=== PATIENT | female | born 2000 | race Caucasian/White ===

== ENCOUNTER 2020-02-17 08:37 | Outpatient (REF) | payer OTHER, SELFPAY | END 2020-02-17 08:38 | disposition home or self-care (01) | LOC: HO.LAB 08:37 | PROVIDERS: Visit Provider Internal Medicine | DX: Z20.828 Contact with and (suspected) exposure to other viral communicable diseases (principal) | CPT/HCPCS: 87635 ==

== ENCOUNTER 2020-03-02 17:00 | Emergency (ER) | payer OTHER, SELFPAY ==
--- NOTE | 2020-03-02 17:13 | CT_ITS ---
EXAMINATION: CT HEAD WITHOUT CONTRAST CLINICAL INFORMATION: Severe headaches. COMPARISON: None. TECHNIQUE: Contiguous helical images of the brain were obtained without IV contrast. Multiplanar reconstructions were performed. DLP: 484 mGy-cm. FINDINGS: There are no pathologic extra-axial fluid collections. The lateral, third, fourth ventricles are nondilated and concordant with the appearance of the sulci. There is no evidence for acute intraparenchymal hemorrhage or infarct. There is neither mass nor mass effect. There is no shift of midline structures. The paranasal sinuses and mastoid air cells are clear. There are no osseous lesions. CT/CT head/brain wo con IMPRESSION: No evidence for acute intracranial injury. Automated exposure control (Care Dose) Adjustment of the mA and/or kv according to patient size (this includes techniques or standardized protocols for targeted exams where dose is matched to indication / reason for exam; i.e. extremities or head).
[2020-03-02 17:14] VITALS: BP 125/80; PULSE 100; RESP 16; TEMP 36.8; O2SAT 99; BMI 17.9
--- NOTE | 2020-03-02 17:15 | ED.HA ---
HPI - Headache General Chief Complaint: Headache Stated Complaint: headache Time Seen by Provider: 03/02/20 17:07 Source: patient Mode of arrival: ambulatory Limitations: no limitations History of Present Illness HPI Narrative: Patient comes to the emergency room complaining of severe intermittent headaches for about 1 month. Patient was seen by her primary care physician, patient states that an MRI has been ordered but is pending for next week. Patient states the headache today is very severe despite taking Excedrin and Tylenol. Patient denies any neurological symptoms, no visual changes. Related Data Previous Rx's Medication Instructions Recorded ketorolac 10 mg PO Q6H PRN 5 Days #10 tab 03/02/20 ketorolac 10 mg PO TID PRN 5 Days tab 03/02/20 metoclopramide HCl [Reglan] 5 mg PO Q6H PRN #10 tab 03/02/20 Allergies Allergy/AdvReac Type Severity Reaction Status Date / Time No Known Allergies Allergy Unverified 01/11/20 16:56 Review of Systems Review of Systems: Constitutional : No Weight loss, No Fever, No Chills, No Night Sweats, No Fatigue, No Malaise ENT/Mouth : No Hearing loss, No Ear Pain, No Nasal Congestion, No Sinus Pain, No Hoarseness, No sore throat, No Rhinorrhea, No Swallowing Difficulty Eyes: No Eye Pain, No Swelling, No Redness, No Foreign Body, No Discharge, No Vision Changes Cardiovascular : No Chest Pain, No SOB, No Dyspnea on Exertion, No Orthopnea, No Edema, No Palpitations Respiratory : No Cough, No Sputum, No Wheezing, No Smoke Exposure, No Dyspnea Gastrointestinal : No Nausea, No Vomiting, No Diarrhea, No Constipation, No abdominal Pain, No Hematochezia, No Melena Genitourinary : no irregular bleeding, No Dysuria, No Urinary Frequency, No Hematuria, No Urinary Incontinence, No Urgency, No Flank Pain, No Urinary Flow Changes, No Hesitancy Musculoskeletal : No joint pain, No Myalgias, No Joint Swelling Skin : No Skin Lesions, No rash Neuro : No Weakness, No Numbness, No Paresthesias, No Loss of Consciousness, No Dizziness, complaining of intense headache worse on the left side intermittently, nonresponsive to [id number] medication Psych : No Anxiety/Panic, No Depression, No SI/HI/AH/VH, No Social Issues, Heme/Lymph: No Bruising, No Bleeding,No Lymphadenopathy Endocrine : No Polyuria, No Polydipsia, No Temperature Intolerance [facility] Past Medical History Medical History No known health problems Family History Family History (Updated 03/02/20 @ 17:17 by Hien Chaparro MD) Other Migraine Social History Social History Alcohol intake: never Smoking Status: Never smoker Smoked in Last 30 Days: No Use of substances other than those prescribed or required for medical reasons: No Advance Directives: No Advance Directives Information Provided: No Physical Exam Vital Signs: Vital Signs: Last Vital Signs Temp 98.2 F 03/02/20 17:20 Pulse 100 03/02/20 17:20 Resp 16 03/02/20 17:14 BP 125/80 03/02/20 17:20 Pulse Ox 99 03/02/20 17:20 Body Mass Index 17.9 Appearance: Alert. Oriented X3. No acute distress. Eyes: Pupils equal, round and reactive to light. Patient does not seem to have photophobia ENT: Pharynx normal. Neck: Normal inspection. Neck supple. No lymph nodes noted. No crepitus CVS: Normal heart rate and rhythm. Pulses normal. Normal S1 and S2 Respiratory: No respiratory distress. Breath sounds normal. No Wheezing. No rales Abdomen: Soft and nontender. No rigidity. No distention. good BS x4 Skin: Skin warm and dry. Normal skin color. Normal skin turgor. Extremities: No lower extremity edema. No lower extremity edema. No Lacerations. No Rash Neuro: Oriented X 3. No motor deficit. No sensory deficit. Moving all extermities. No slurred speech. Course Course Course Narrative: I discussed the head CT with the patient, no acute findings. Patient states she still has a headache, patient looks well, she is in no acute distress, lights do not bother her, patient has a television on in her room, she is watching TV and playing on her phone. On physical exam prior to discharge, patient remains neurologically intact Patient will follow-up with her primary care physician, if needed she may need a Neurology referral. Discharge Plan Discharge Clinical Impression: Headache Qualifiers: Headache type: unspecified Headache chronicity pattern: chronic headache Intractability: not intractable Qualified Code(s): R51.9 - Headache, unspecified Patient Disposition: Home, Self-Care Instructions: Acute Headache (ED) Additional Instructions: Please follow-up with your primary care physician tomorrow. If you have any worsening or new symptoms, please return to the emergency room or call 911 Prescriptions: New ketorolac 10 mg tablet 10 mg PO TID PRN (Reason: pain) 5 Days RF: 0 metoclopramide HCl [Reglan] 5 mg tablet 5 mg PO Q6H PRN (Reason: nausea and vomiting) Qty: 10 RF: 0 ketorolac 10 mg tablet 10 mg PO Q6H PRN (Reason: headache) 5 Days Qty: 10 RF: 0
[2020-03-02 17:20] VITALS: BP 125/80; PULSE 100; TEMP 36.8; O2SAT 99
[2020-03-02] MEDS: 0.9 % Sodium Chloride 1,000 ML 999 ML IVCONT (17:47)
[2020-03-02] MEDS: Metoclopramide HCl 10 MG/2 ML VIAL IVPUSH (17:51)
[2020-03-02] MEDS: Ketorolac Tromethamine 30 MG/ML VIAL IVPUSH (17:51)
[2020-03-02] MEDS: diphenhydrAMINE HCL 50 MG/ML VIAL IVPUSH (17:51)
--- NOTE | 2020-03-02 17:58 | PC.NURSE ---
IV established, pt has been medicated as ordered and is resting quietly
[2020-03-02 18:43] VITALS: BP 122/82; PULSE 93; RESP 18; TEMP 36.8; O2SAT 99
== END 2020-03-02 19:41 | disposition home or self-care (01) ==
PROVIDERS: Emergency Provider Emergency Medicine
DX: R51.9 Headache, unspecified (principal); Z79.899 Other long term (current) drug therapy
CPT/HCPCS: 70450; 96361; 96374; 96375; 99284; J1200; J1885; J2765

== ENCOUNTER 2020-07-19 15:25 | Outpatient (REF) | payer OTHER, SELFPAY | END 2020-07-19 15:26 | disposition home or self-care (01) | LOC: HO.LAB 15:25 | PROVIDERS: Visit Provider Internal Medicine | DX: Z20.822 Contact with and (suspected) exposure to COVID-19 (principal) | CPT/HCPCS: 36415; C9803; U0003; U0005 ==

== ENCOUNTER 2020-12-29 14:25 | Emergency (ER) | payer OTHER, SELFPAY ==
--- NOTE | ~2020-12-29 | CT_ITS ---
EXAMINATION: CT ABDOMEN AND PELVIS WITH CONTRAST CLINICAL INFORMATION: right CVA tender and diffuse abdominal pain COMPARISON: None. TECHNIQUE: Multidetector volumetric imaging was performed from the superior aspect of the liver through the pubic symphysis following administration of 85 mL Omnipaque 300 intravenous contrast. Sagittal and coronal reformatted images were obtained on the technologist workstation.. This CT examination was performed using dose optimization techniques as appropriate, variously including the following: *Automated exposure control *Adjustment of mA and/or kV according to patient size (this includes techniques or standardized protocols for targeted exams where dose is matched to indication/reason for exam; i.e. extremities or head) *Use of iterative reconstruction technique DLP: 233 mGy-cm FINDINGS: LUNG BASES: The visualized lung bases are unremarkable. PERITONEAL SPACE: Small amount of free fluid tracking along the paracolic gutters and into the pelvis. LIVER, GALLBLADDER, AND BILIARY TREE: The liver is normal in size, shape, and attenuation. There is mild periportal edema seen which is a nonspecific finding. No focal hepatic lesion or biliary ductal dilatation is present. Gallbladder is contracted with a small amount of nonspecific pericholecystic fluid. PANCREAS: Unremarkable. SPLEEN: Unremarkable. ADRENAL GLANDS: Unremarkable. KIDNEYS AND URETERS: The kidneys are normal in size, shape, and attenuation. No hydronephrosis, hydroureter, or calculi seen. No perinephric stranding. BLADDER: Unremarkable. GASTROINTESTINAL TRACT: The small and large bowel are unremarkable. The appendix is is not able to be from adjacent bowel loops but I do not appreciate any focal inflammatory change in the right lower quadrant. Small amount of free fluid is seen in the dependent pelvis. ABDOMINAL WALL: No significant hernia is appreciated. LYMPHOVASCULAR STRUCTURES: No lymphadenopathy. The aorta is unremarkable. PELVIC VISCERA: Physiologic changes are seen bilaterally in the adnexa. Small amount of free fluid in the dependent pelvis. OSSEOUS STRUCTURES: Unremarkable. CT/CT abdomen pelvis w con IMPRESSION: Small amount of free fluid is seen. There is mild nonspecific pericholecystic fluid as well as some mild fluid tracking along the portal tracts of uncertain etiology in the setting of the small free fluid. Overall the appearance is nonspecific
[2020-12-29 14:50] VITALS: BP 122/72; PULSE 87; RESP 18; TEMP 36.4; O2SAT 97; BMI 18.8
[2020-12-29 15:11] LABS: Glucose Urine UA NEG (NEG); Leukocyte Esterase Urine NEG (NEG); Nitrite Urine NEG (NEG); Specific Gravity - Urine 1.015 (1.005-1.025); Urine Blood NEG (NEG); Urine Ketones NEG (NEG); Urine Protein NEG (NEG-TRACE)
[2020-12-29 15:13] LABS: Appearance Urine CLEAR; Color Urine YELLOW
[2020-12-29 15:14] LABS: UPreg QC Valid YES; Urine Pregnancy NEGATIVE (NEGATIVE)
--- NOTE | 2020-12-29 15:21 | ED.ABDPAIN ---
HPI - Abdominal Pain General Chief Complaint: Abdominal Pain Stated Complaint: KIDNEY AND ABD PAIN Time Seen by Provider: 12/29/20 15:20 Source: patient Mode of arrival: ambulatory Limitations: no limitations History of Present Illness HPI narrative: 20-year-old female presents with diffuse abdominal pain and ?kidney pain? for the last 2 months. Patient describes her pain on the sides of her abdomen in her lower abdomen and now on her right back. States she had some dysuria today and no hematuria. States the pain is worse when she lies flat. Pain today is 8/10. Patient has had no fevers, no nausea, diarrhea, vomiting, she has regular bowel movements, no constipation, no abdominal surgeries. Patient's last menstrual period was last month. MD elicited complaint: abdominal pain and flank pain Pertinent past history: none Onset (ago): month(s) (2) Pain Consistency: intermittent Location: diffuse Severity: severe Pain scale (0-10): 8 Radiation: R flank Exacerbating factors: other (lying flat) Relieving factors: nothing Associated symptoms: denies other symptoms Related Data Previous Rx's Medication Instructions Recorded ketorolac 10 mg tablet 10 mg PO Q6H PRN 5 Days #10 tab 03/02/20 ketorolac 10 mg tablet 10 mg PO TID PRN 5 Days tab 03/02/20 metoclopramide HCl 5 mg tablet 5 mg PO Q6H PRN #10 tab 03/02/20 (Reglan) Allergies Allergy/AdvReac Type Severity Reaction Status Date / Time No Known Allergies Allergy Unverified 01/11/20 16:56 Review of Systems Constitutional: Denies body ache(s), Denies chills, Denies fatigue, Denies fever(s), Denies headache(s), Denies malaise and Denies weakness Eyes: Denies diplopia Denies vertigo, Denies dizziness, Denies otalgia, Denies headache(s), Denies mouth pain, Denies post nasal drip, Denies sinus pain, Denies sinus pressure, Denies sore throat and Denies throat swelling Cardiovascular: Denies chest pain, Denies syncope, Denies leg edema, Denies lightheadedness, Denies Loss of Consciousness, Denies palpitations and Denies dyspnea Respiratory: Denies chest congestion, Denies cough and Denies dyspnea Gastrointestinal: Reports abdominal pain, Denies hematochezia, Denies constipation, Denies diarrhea and Denies vomiting Genitourinary: Reports dysuria, Reports flank pain, Denies vaginal discharge, Denies vaginal odor and Denies vaginal pruritus Musculoskeletal: Reports no additional musculoskeletal complaints Denies confusion, Denies vertigo, Denies dizziness, Denies syncope, Denies headache(s) and Denies weakness Psychiatric: Denies anxiety, Denies confusion and Denies depression Endocrine: Denies fatigue and Denies palpitations Allergic/Immunologic: Denies throat swelling Physical Exam Vital Signs: Vital Signs: Last Vital Signs Temp 98.5 F 12/29/20 15:34 Pulse 78 12/29/20 19:05 Resp 16 12/29/20 19:05 BP 106/66 12/29/20 19:05 Pulse Ox 96 12/29/20 15:34 Body Mass Index 18.8 Const: General: no acute distress, well developed, alert and awake; No confusion Nutritional Appearance: well nourished Orientation/consciousness: patient oriented x3 and No confusion Limitations: no limitations HENMT: Head: Yes normal to inspection, Yes normocephalic and Yes atraumatic Ears: hearing grossly normal bilaterally, external ears normal, TM's normal bilaterally and EAC's normal General nose exam: Normal external nose present Face and sinus: Yes normal facial exam and Yes sinuses nontender Mouth: Normal oral and palatal mucosa present Throat: Yes posterior oropharynx normal Eyes: Conjunctivae: conjunctivae normal Pupils: Equal, round and reactive pupils present EOM: EOMs intact bilaterally Neck: Neck: Yes full ROM, Yes no lymphadenopathy and Yes supple Resp: Effort & Inspection: normal respiratory effort and able to speak in complete sentences Auscultation: clear to auscultation bilaterally, no crackles, no rales, no rhonchi and no wheezes Cardio: Rate: regular rate Rhythm: regular rhythm Heart sounds: S1 normal heart sound present and S2 normal heart sound present GI: Inspection: Yes normal to inspection Palpation (GI): Soft to palpation, Tenderness to palpation present (GI) (diffusely), no guarding and not rigid Percussion: Yes normal to percussion Auscultation: normal bowel sounds : General: Yes CVA tenderness on the right Back/Spine/Pelvis: Back: CVA tenderness Skin: General skin exam: no rashes or lesions noted Neuro: General: patient oriented x3 and No confusion Cranial nerves: Yes Equal, round and reactive pupils present Extrem: General: Yes normal to inspection and Yes full ROM Psych: Appearance: grossly normal Affect: normal affect Attitude: cooperative Thought process: Normal thought process present Course Course Course Narrative: 20-year-old female with diffuse abdominal pain, radiating to her bilateral back for 2 months. On exam, patient is afebrile, well-appearing, and is diffusely tender throughout her abdomen without guarding or rebound tenderness. Patient has right CVA tenderness. Labs are unremarkable, lipase is normal, urine is normal. CT shows: Small amount of free fluid is seen. There is mild nonspecific pericholecystic fluid as well as some mild fluid tracking along the portal tracts of uncertain etiology in the setting of the small free fluid. Overall the appearance is nonspecific Discussed CT findings with Dr Anand, he said this was non-specific and pt can f/u with her PCP. Counseled patient that all of her labs and imaging were normal today. We discussed that sometimes it is frustrating when you do not find and answer. Counseled patient to follow-up with her primary care provider, and return to the emergency room if she had worsening pain, fevers, nausea, vomiting MDM - Abdominal Pain Lab Data Result diagrams: 12/29/20 16:08 12/29/20 16:08 Labs: Lab Results 12/29/20 12/29/20 12/29/20 Range/Units 14:56 14:56 16:08 WBC 5.9 (4.8-10.8) X10*3/uL RBC 4.66 (4.20-5.50) X10*6/uL Hgb 12.8 (12.0-16.0) g/dl Hct 39.1 (37-47) % MCV 83.9 (80-98) fL MCH 27.5 (27.0-33.0) pg MCHC 32.7 (31.0-35.0) g/dl RDW 13.3 (11.0-16.0) % Plt Count 220 (160-400) X10*3/uL MPV 10.1 (9.4-12.3) fL Immature Gran % (Auto) 0.3 (0.0-0.4) % Neut % (Auto) 66.6 (45-73) % Lymph % (Auto) 27.5 (20-40) % Wallace % (Auto) 4.6 (2-11) % Eos % (Auto) 0.8 (0-4) % Baso % (Auto) 0.2 (0-2) % Lymph # (Auto) 1.6 (1.2-4.9) X10*3/uL Wallace # (Auto) 0.3 (0.1-1.2) X10*3/uL Eos # (Auto) 0.1 (0.0-0.4) X10*3/uL Baso # (Auto) 0.0 (0.0-0.2) X10*3/uL Abs Immat Gran (auto) 0.02 (0.00-0.03) X10*3/uL Absolute Neuts (auto) 3.9 (2.0-8.3) X10*3/uL Absolute Nucleated RBC 0.000 (0.0-0.012) X10*3/uL Nucleated RBC % (auto) 0.0 (0.0-0.2) /100WBC Sodium (135-145) mmol/L Potassium (3.3-5.1) mmol/L Chloride (96-108) mmol/L Carbon Dioxide (22-29) mmol/L Anion Gap (12-20) BUN (9-16) mg/dL Creatinine (0.5-1.4) mg/dL Estim Creat Clear Calc Estimated GFR Random Glucose (60-115) mg/dL Calcium (8.4-10.2) mg/dL Total Bilirubin (0.0-1.0) mg/dL AST (5-31) U/L ALT (0-31) U/L Alkaline Phosphatase (39-117) U/L Total Protein (6.5-8.0) g/dL Albumin (3.5-5.0) g/dL Lipase (8-78) U/L Urine Color YELLOW Urine Appearance CLEAR Urine pH 6.0 (5.0-8.0) Ur Specific [place] 1.015 (1.005-1.025) Urine Protein NEG (NEG-TRACE) MG/DL Urine Glucose (UA) NEG (NEG) MG/DL Urine Ketones NEG (NEG) MG/DL Urine Blood NEG (NEG) Urine Nitrite NEG (NEG) Ur Leukocyte Esterase NEG (NEG) Urine Test NEGATIVE (NEGATIVE) 12/29/20 Range/Units 16:08 WBC (4.8-10.8) X10*3/uL RBC (4.20-5.50) X10*6/uL Hgb (12.0-16.0) g/dl Hct (37-47) % MCV (80-98) fL MCH (27.0-33.0) pg MCHC (31.0-35.0) g/dl RDW (11.0-16.0) % Plt Count (160-400) X10*3/uL MPV (9.4-12.3) fL Immature Gran % (Auto) (0.0-0.4) % Neut % (Auto) (45-73) % Lymph % (Auto) (20-40) % Wallace % (Auto) (2-11) % Eos % (Auto) (0-4) % Baso % (Auto) (0-2) % Lymph # (Auto) (1.2-4.9) X10*3/uL Wallace # (Auto) (0.1-1.2) X10*3/uL Eos # (Auto) (0.0-0.4) X10*3/uL Baso # (Auto) (0.0-0.2) X10*3/uL Abs Immat Gran (auto) (0.00-0.03) X10*3/uL Absolute Neuts (auto) (2.0-8.3) X10*3/uL Absolute Nucleated RBC (0.0-0.012) X10*3/uL Nucleated RBC % (auto) (0.0-0.2) /100WBC Sodium 138 (135-145) mmol/L Potassium 4.3 (3.3-5.1) mmol/L Chloride 104 (96-108) mmol/L Carbon Dioxide 26 (22-29) mmol/L Anion Gap 12 (12-20) BUN 18 H (9-16) mg/dL Creatinine 0.80 (0.5-1.4) mg/dL Estim Creat Clear Calc 72.3 Estimated GFR > 60 Random Glucose 101 (60-115) mg/dL Calcium 9.9 (8.4-10.2) mg/dL Total Bilirubin 0.7 (0.0-1.0) mg/dL AST 14 (5-31) U/L ALT 7 (0-31) U/L Alkaline Phosphatase 54 (39-117) U/L Total Protein 7.4 (6.5-8.0) g/dL Albumin 4.6 (3.5-5.0) g/dL Lipase 23 (8-78) U/L Urine Color Urine Appearance Urine pH (5.0-8.0) Ur Specific [place] (1.005-1.025) Urine Protein (NEG-TRACE) MG/DL Urine Glucose (UA) (NEG) MG/DL Urine Ketones (NEG) MG/DL Urine Blood (NEG) Urine Nitrite (NEG) Ur Leukocyte Esterase (NEG) Urine Test (NEGATIVE) Discharge Plan Discharge Clinical Impression: Abdominal pain Qualifiers: Abdominal location: generalized Qualified Code(s): R10.84 - Generalized abdominal pain Patient Disposition: Home, Self-Care Instructions: Abdominal Pain (ED) Additional Instructions: We found no explanation for your abdominal pain today. Your abdominal CT was normal, your labs were normal, your urine was normal. Please call your primary care provider on Wednesday for follow-up appointment. Please return to the emergency room if you have worsening abdominal pain, fevers, nausea vomiting, or any other new or concerning symptoms. Prescriptions: No Action ketorolac 10 mg tablet 10 mg PO TID PRN (Reason: pain) 5 Days RF: 0 metoclopramide HCl [Reglan] 5 mg tablet 5 mg PO Q6H PRN (Reason: nausea and vomiting) Qty: 10 RF: 0 ketorolac 10 mg tablet 10 mg PO Q6H PRN (Reason: headache) 5 Days Qty: 10 RF: 0 PMFSH Past Medical History Medical History No known health problems Family History Family History (Updated 03/02/20 @ 17:17 by Hien Chaparro MD) Other Migraine Social History Social History Alcohol intake: never Advance Directives: No Advance Directives Information Provided: No Patient : No
[2020-12-29 15:34] VITALS: BP 103/64; PULSE 76; RESP 16; TEMP 36.9; O2SAT 96
[2020-12-29 16:11] LABS: MANUAL DIFF FLAG NO
[2020-12-29] MEDS: 0.9 % Sodium Chloride 1,000 ML 999 ML IV (16:12)
[2020-12-29] MEDS: Ketorolac Tromethamine 15 MG/ML VIAL IVPUSH (16:14)
[2020-12-29 16:21] LABS: Basophils Percent Auto 0.2 % (0-2); Eosinophils Absolute Auto 0.1 X10*3/uL (0.0-0.4); Eosinophils Percent Auto 0.8 % (0-4); Hematocrit 39.1 % (37-47); Hemoglobin 12.8 g/dl (12.0-16.0); Imm Gran Abs Auto 0.02 X10*3/uL (0.00-0.03); Imm Gran Pct Auto 0.3 % (0.0-0.4); Lymphocytes Absolute Auto 1.6 X10*3/uL (1.2-4.9); Lymphocytes Percent Auto 27.5 % (20-40); Mean Corpuscular HGB Conc 32.7 g/dl (31.0-35.0); Mean Corpuscular Hemoglobin 27.5 pg (27.0-33.0); Mean Corpuscular Volume 83.9 fL (80-98); Mean Platelet Volume 10.1 fL (9.4-12.3); Monocytes Absolute Auto 0.3 X10*3/uL (0.1-1.2); Monocytes Percent Auto 4.6 % (2-11); Neutrophils Absolute Auto 3.9 X10*3/uL (2.0-8.3); Neutrophils Percent Auto 66.6 % (45-73); Platelet Count 220 X10*3/uL (160-400); Red Blood Count 4.66 X10*6/uL (4.20-5.50); Red Cell Distribution Width 13.3 % (11.0-16.0); White Blood Count 5.9 X10*3/uL (4.8-10.8)
[2020-12-29 16:39] LABS: Alanine Aminotransferase 7 U/L (0-31); Albumin Level 4.6 g/dL (3.5-5.0); Alkaline Phosphatase 54 U/L (39-117); Anion Gap 12 (12-20); Aspartate Amino Transferase 14 U/L (5-31); Bilirubin Total 0.7 mg/dL (0.0-1.0); Blood Urea Nitrogen 18 mg/dL (9-16); Calcium 9.9 mg/dL (8.4-10.2); Carbon Dioxide 26 mmol/L (22-29); Chloride 104 mmol/L (96-108); Creatinine Clr Calc Pharmacy 72.3; Estimated Glomerular Filt Rate > 60; Glucose Random 101 mg/dL (60-115); Lipase 23 U/L (8-78); Potassium 4.3 mmol/L (3.3-5.1); Sodium 138 mmol/L (135-145); Total Protein 7.4 g/dL (6.5-8.0)
[2020-12-29] MEDS: iohexoL 350 MG/ML 100 ML INFUS..BTL IV (17:46)
[2020-12-29 18:00] VITALS: RESP 16
[2020-12-29 19:05] VITALS: BP 106/66; PULSE 78; RESP 16
--- NOTE | 2020-12-29 19:06 | PC.NURSE ---
PA at bedside explaining results and plan of care. VSS, pt reports 4/10 pain to abdomen. Pt sitting upright in bed, eating chips and ice cream with family. Pt aware of plan to discharge home. Awaiting paperwork.
== END 2020-12-29 19:43 | disposition home or self-care (01) ==
PROVIDERS: Physician Assistant; Emergency Provider Emergency Medicine; PCP Pediatrics
DX: R10.84 Generalized abdominal pain (principal); M54.5 Low back pain; Z79.899 Other long term (current) drug therapy
CPT/HCPCS: 36415; 74177; 80053; 81003; 81025; 83690; 85025; 96374; 99284; J1885; Q9967

== ENCOUNTER 2021-06-23 01:37 | Emergency (ER) | payer OTHER, SELFPAY ==
[2021-06-23 01:45] VITALS: BP 122/75; PULSE 81; RESP 16; TEMP 36.7; O2SAT 98; BMI 20.5
--- NOTE | 2021-06-23 01:49 | ECG_ITS ---
Test Reason : chest pain Blood Pressure : / mmHG Vent. Rate : 071 BPM Atrial Rate : 071 BPM P-R Int : 134 ms QRS Dur : 070 ms QT Int : 356 ms P-R-T Axes : 000 095 062 degrees QTc Int : 386 ms Normal sinus rhythm Rightward axis Borderline ECG No previous ECGs available Referred By: Hien Chaparro Electronically Signed By:Jered Tamez
--- NOTE | 2021-06-23 01:50 | ED.CHESTPAIN ---
HPI - Chest Pain General Chief Complaint: Chest Pain Stated Complaint: heart pain? Time Seen by Provider: 06/23/21 01:46 Source: patient Mode of arrival: ambulatory Limitations: no limitations History of Present Illness HPI narrative: Patient comes to the emergency room complaining of chest pain for 1 week, patient states the pain is bilateral. Patient denies shortness of breath, no fever chills, no recent URIs. Related Data Previous Rx's Medication Instructions Recorded ketorolac 10 mg tablet 10 mg PO Q6H PRN 5 Days #10 tab 03/02/20 ketorolac 10 mg tablet 10 mg PO TID PRN 5 Days tab 03/02/20 metoclopramide HCl 5 mg tablet 5 mg PO Q6H PRN #10 tab 03/02/20 (Reglan) Allergies Allergy/AdvReac Type Severity Reaction Status Date / Time No Known Allergies Allergy Unverified 01/11/20 16:56 Review of Systems Review of Systems: Constitutional : No Weight loss, No Fever, No Chills, No Night Sweats, No Fatigue, No Malaise ENT/Mouth : No Hearing loss, No Ear Pain, No Nasal Congestion, No Sinus Pain, No Hoarseness, No sore throat, No Rhinorrhea, No Swallowing Difficulty Eyes: No Eye Pain, No Swelling, No Redness, No Foreign Body, No Discharge, No Vision Changes Cardiovascular : Constant chronic bilateral chest pain for 1 week No SOB, No Dyspnea on Exertion, No Orthopnea, No Edema, No Palpitations Respiratory : No Cough, No Sputum, No Wheezing, No Smoke Exposure, No Dyspnea Gastrointestinal : No Nausea, No Vomiting, No Diarrhea, No Constipation, No abdominal Pain, No Hematochezia, No Melena Genitourinary : no irregular bleeding, No Dysuria, No Urinary Frequency, No Hematuria, No Urinary Incontinence, No Urgency, No Flank Pain, No Urinary Flow Changes, No Hesitancy Musculoskeletal : No joint pain, No Myalgias, No Joint Swelling Skin : No Skin Lesions, No rash Neuro : No Weakness, No Numbness, No Paresthesias, No Loss of Consciousness, No Dizziness, No Headache Psych : No Anxiety/Panic, No Depression, No SI/HI/AH/VH, No Social Issues, Heme/Lymph: No Bruising, No Bleeding,No Lymphadenopathy Endocrine : No Polyuria, No Polydipsia, No Temperature Intolerance PMFSH Past Medical History Medical History No known health problems Family History Family History (Updated 03/02/20 @ 17:17 by Hien Chaparro MD) Other Migraine Social History Social History Alcohol intake: never Advance Directives: No Advance Directives Information Provided: Yes Physical Exam Vital Signs: Vital Signs: Last Vital Signs Temp 98.1 F 06/23/21 01:45 Pulse 81 06/23/21 01:45 Resp 16 06/23/21 01:45 BP 122/75 06/23/21 01:45 Pulse Ox 98 06/23/21 01:45 BMI result Body Mass Index 20.5 Const: Other: Appearance: Alert. Oriented X3. No acute distress. Eyes: Pupils equal, round and reactive to light. ENT: Pharynx normal. Neck: Normal inspection. Neck supple. No lymph nodes noted. No crepitus CVS: Normal heart rate and rhythm. Pulses normal. Normal S1 and S2, reproducible chest pain to palpation bilaterally Respiratory: No respiratory distress. Breath sounds normal. No Wheezing. No rales Abdomen: Soft and nontender. No rigidity. No distention. good BS x4 Skin: Skin warm and dry. Normal skin color. Normal skin turgor. Extremities: No lower extremity edema. No lower extremity edema. No Lacerations. No Rash Neuro: Oriented X 3. No motor deficit. No sensory deficit. Moving all extermities. No slurred speech. Course Course Course Narrative: I discussed with the patient that her EKG, labs are within normal limits. Physical exam was consistent with musculoskeletal pain. MDM - Chest Pain Lab Data Result diagrams: 06/23/21 01:58 06/23/21 01:58 Labs: Lab Results 06/23/21 06/23/21 06/23/21 Range/Units 01:58 01:58 01:58 WBC 8.9 (4.8-10.8) X10*3/uL RBC 4.47 (4.20-5.50) X10*6/uL Hgb 12.2 (12.0-16.0) g/dl Hct 37.9 (37.0-47.0) % MCV 84.8 (80.0-98.0) fL MCH 27.3 (27.0-33.0) pg MCHC 32.2 (31.0-35.0) g/dl RDW 13.4 (11.0-16.0) % Plt Count 252 (160-400) X10*3/uL MPV 9.4 (9.4-12.3) fL Immature Gran % (Auto) 0.2 (0.0-0.4) % Neut % (Auto) 50.6 (45-73) % Lymph % (Auto) 40.2 H (20-40) % [place] % (Auto) 6.7 (2-11) % Eos % (Auto) 1.8 (0-4) % Baso % (Auto) 0.5 (0-2) % Lymph # (Auto) 3.6 (1.2-4.9) X10*3/uL [place] # (Auto) 0.6 (0.1-1.2) X10*3/uL Eos # (Auto) 0.2 (0.0-0.4) X10*3/uL Baso # (Auto) 0.0 (0.0-0.2) X10*3/uL Abs Immat Gran (auto) 0.02 (0.00-0.03) X10*3/uL Absolute Neuts (auto) 4.5 (2.0-8.3) x10*3/uL Absolute Nucleated RBC 0.000 (0.0-0.012) X10*3/uL Nucleated RBC % (auto) 0.0 (0.0-0.2) /100WBC Sodium 139 (135-145) mmol/L Potassium 4.0 (3.3-5.1) mmol/L Chloride 103 (96-108) mmol/L Carbon Dioxide 27 (22-29) mmol/L Anion Gap 13 (12-20) BUN 16 (9-16) mg/dL Creatinine 0.80 (0.5-1.4) mg/dL Estim Creat Clear Calc 72.4 Estimated GFR > 60 Random Glucose 88 (60-115) mg/dL Calcium 9.5 (8.4-10.2) mg/dL Troponin I High Sens < 3.5 (<3.5-17.0) ng/L ECG Data ECG #1: Attestation: I personally reviewed and interpreted this ECG as follows: (Normal sinus rhythm, heart rate 71, no acute findings, QTC 386) Discharge Plan Discharge Clinical Impression: Costochondritis Patient Disposition: Home, Self-Care Instructions: Costochondritis (ED) Additional Instructions: Please follow-up with your primary care physician tomorrow. If you have any worsening or new symptoms, please return to the emergency room or call 911 Prescriptions: No Action ketorolac 10 mg tablet 10 mg PO TID PRN (Reason: pain) 5 Days 0RF metoclopramide HCl [Reglan] 5 mg tablet 5 mg PO Q6H PRN (Reason: nausea and vomiting) Qty: 10 0RF ketorolac 10 mg tablet 10 mg PO Q6H PRN (Reason: headache) 5 Days Qty: 10 0RF
[2021-06-23 02:03] LABS: MANUAL DIFF FLAG NO
[2021-06-23 02:11] LABS: Basophils Percent Auto 0.5 % (0-2); Eosinophils Absolute Auto 0.2 X10*3/uL (0.0-0.4); Eosinophils Percent Auto 1.8 % (0-4); Hematocrit 37.9 % (37.0-47.0); Hemoglobin 12.2 g/dl (12.0-16.0); Imm Gran Abs Auto 0.02 X10*3/uL (0.00-0.03); Imm Gran Pct Auto 0.2 % (0.0-0.4); Lymphocytes Absolute Auto 3.6 X10*3/uL (1.2-4.9); Lymphocytes Percent Auto 40.2 % (20-40); Mean Corpuscular HGB Conc 32.2 g/dl (31.0-35.0); Mean Corpuscular Hemoglobin 27.3 pg (27.0-33.0); Mean Corpuscular Volume 84.8 fL (80.0-98.0); Mean Platelet Volume 9.4 fL (9.4-12.3); Monocytes Absolute Auto 0.6 X10*3/uL (0.1-1.2); Monocytes Percent Auto 6.7 % (2-11); Neutrophils Absolute Auto 4.5 x10*3/uL (2.0-8.3); Neutrophils Percent Auto 50.6 % (45-73); Platelet Count 252 X10*3/uL (160-400); Red Blood Count 4.47 X10*6/uL (4.20-5.50); Red Cell Distribution Width 13.4 % (11.0-16.0); White Blood Count 8.9 X10*3/uL (4.8-10.8)
[2021-06-23 02:23] LABS: Troponin-I High Sensitivity < 3.5 ng/L (<3.5-17.0)
[2021-06-23 02:25] LABS: Anion Gap 13 (12-20); Blood Urea Nitrogen 16 mg/dL (9-16); Calcium 9.5 mg/dL (8.4-10.2); Carbon Dioxide 27 mmol/L (22-29); Chloride 103 mmol/L (96-108); Creatinine Clr Calc Pharmacy 72.4; Estimated Glomerular Filt Rate > 60; Glucose Random 88 mg/dL (60-115); Sodium 139 mmol/L (135-145)
== END 2021-06-23 02:55 | disposition home or self-care (01) ==
PROVIDERS: Emergency Provider Emergency Medicine
DX: M94.0 Chondrocostal junction syndrome [Tietze] (principal)
CPT/HCPCS: 36415; 80048; 84484; 85025; 93005; 99283; 99284

== ENCOUNTER 2023-11-12 18:19 | Emergency (ER) | payer OTHER, SELFPAY ==
--- NOTE | ~2023-11-12 | XR_ITS ---
EXAMINATION: XR RIBS, RIGHT CLINICAL INFORMATION: Rib pain. COMPARISON: None available. TECHNIQUE: 3 views of the right ribs were obtained. A single chest radiograph was performed. FINDINGS: Lungs are clear. No consolidation, pneumothorax, or pleural effusion. The cardiomediastinal silhouette and pulmonary vasculature are normal. Osseous structures are unremarkable. Ribs are intact. No fractures are identified. XR/XR ribs RT min 3V w CXR1V IMPRESSION: No acute cardiopulmonary disease. No right rib fracture.
[2023-11-12 18:54] VITALS: BP 114/64; PULSE 82; RESP 16; TEMP 36.6; O2SAT 99; BMI 17.9
--- NOTE | 2023-11-12 18:54 | ED_ITS ---
HPI - General Adult General Chief complaint: General Medical Stated complaint: Rib pain? Hurt at work Time Seen by Provider: 11/12/23 20:15 Source: patient Mode of arrival: ambulatory Limitations: no limitations History of Present Illness HPI narrative: Patient is a 23-year-old female who presents to the emergency department for evaluation, reports a work-related injury, was lifting a box and then it subsequently fell landing on her right lateral chest she subsequently fell to the ground. Pain made worse with inspiration. Occurred around 15:20 today. Related Data Previous Rx's ?Medication ?Instructions ?Recorded ketorolac 10 mg tablet 10 mg PO Q6H PRN headache 5 days 03/02/20 #10 tabs ketorolac 10 mg tablet 10 mg PO TID PRN pain 5 days 03/02/20 metoclopramide HCl 5 mg tablet 5 mg PO Q6H PRN nausea and 03/02/20 (Reglan) vomiting #10 tabs Allergies Allergy/AdvReac Type Severity Reaction Status Date / Time No Known Allergies Allergy Verified 11/12/23 18:56 Review of Systems Review of Systems: Yes all other systems are reviewed and are negative [facility] Past Medical History Attestation statement: The following information was validated with the patient. Source: old records reviewed Medical History No known health problems Family History Family History (Updated 03/02/20 @ 17:17 by Hien Chaparro MD) Other Migraine Social History Social History Alcohol intake: never Patient Tobacco Use Status: Never used Tobacco Physical Exam ED Vital Signs: Vital Signs - 24 hr 11/12/23 18:54 Temperature 97.9 F Pulse Rate 82 Respiratory Rate 16 Blood Pressure 114/64 Pulse Oximetry 99 Oxygen Delivery Method Room Air BMI result Body Mass Index 17.9 Appearance: Alert.?Oriented to person, place and time. No acute distress. ?Normal affect. Eyes: Pupils equal, round and reactive to light.? ENT: Pharynx normal.?? Neck: Normal inspection.? Neck supple.?? CVS: Heart sounds normal. Normal heart rate and rhythm.? Pulses normal.?? Respiratory: No respiratory distress.? Lung sounds clear to auscultation bilaterally. Tenderness upon palpation of the lower right lateral chest wall. No crepitus. No palpable deformities. Abdomen: Soft and non-tender. Normoactive bowel sounds. Skin: Skin warm and dry.? Normal skin color.? ?? Extremities: No lower extremity edema.? Neuro: Moves all extremities spontaneously. Sensation intact bilaterally. CN II- XII intact. No focal neuro deficits. Ambulates with normal steady gait. Medical Decision Making Medical Decision Making MDM Narrative: Patient is a 23-year-old female who presents emergency department for evaluation of traumatic right lateral chest wall pain as per HPI. XR is without evidence of acute fracture, no pneumothorax or atelectasis. No obvious deformity. No ecchymosis. Symptoms at this time most consistent with rib contusion. Abdominal examination is benign. No hypoxia. Speaking clear full sentences. Ambulatory with a steady gait. Discussed conservative treatment, use of NSAIDs, incentive spirometer, outpatient follow-up with workmen's comp/PCP. Discussed strict return precautions. Stable for discharge. Differential Diagnosis Differential Diagnoses: The differential diagnosis associated with the presentation includes (See narrative above) Admission/Observation Consideration of admission/observation: Escalation of care including admission/observation considered Independent Interpretation I performed an independent interpretation of an: Plain X-Ray (See narrative above) Radiology Impression Discussion of test interpretation with radiology: I have reviewed the radiologist's reading. Radiologist Impression: Patient is a 23-year-old female who presents to the emergency department for evaluation, reports a work-related injury, was lifting a box and then it subsequently fell landing on her right lateral chest she subsequently fell to the ground. Pain made worse with inspiration. Occurred around 15:20 today. External Record Review External record reviewed: Outpatient record Prescription Management I considered prescription management with: Pain Medication Discharge Plan Discharge Clinical Impression: Contusion of rib on right side Patient Disposition: Home, Self-Care Instructions: Rib Contusion (ED) Additional Instructions: You can take ibuprofen 200 mg, 3 tablets (600mg) every 6-8 hours as needed for pain, in addition to Tylenol 500 mg, 2 tablets (1,000mg) every 4-6 hours as needed for pain, but not to exceed 3 doses daily (3,000mg).? Use incentive spirometer as instructed. Follow-up with your primary care provider/workman's comp provider. Return to emergency department any new or worsening symptoms or concerns. Prescriptions: No Action ketorolac 10 mg tablet 10 mg PO TID PRN (Reason: pain) 5 Days 0RF metoclopramide HCl [Reglan] 5 mg tablet 5 mg PO Q6H PRN (Reason: nausea and vomiting) Qty: 10 0RF ketorolac 10 mg tablet 10 mg PO Q6H PRN (Reason: headache) 5 Days Qty: 10 0RF Referrals: Physician,Unknown J [Primary Care Provider] - Print Language: Bulgarian
[2023-11-12 20:31] VITALS: BP 114/64; PULSE 82; RESP 16; TEMP 36.6; O2SAT 99
== END 2023-11-12 20:32 | disposition home or self-care (01) ==
PROVIDERS: Emergency Provider Emergency Medicine
DX: S20.211A Contusion of right front wall of thorax, initial encounter (principal); W22.8XXA Striking against or struck by other objects, initial encounter; Y93.9 Activity, unspecified; Y92.9 Unspecified place or not applicable; Y99.0 Civilian activity done for income or pay
CPT/HCPCS: 71101; 99282; 99283

== ENCOUNTER 2025-02-14 11:37 | Emergency (ER) | payer OTHER, SELFPAY ==
--- NOTE | ~2025-02-14 | US_ITS ---
EXAMINATION: US OBSTETRICAL ULTRASOUND CLINICAL INFORMATION: 12 week with vaginal bleed. COMPARISON: None available. LMP: 11/20/2024. Gestational age by maternal dates is 12 weeks and 2 days. Estimated date of delivery by maternal dates is 08/27/2025. TECHNIQUE: Real-time transabdominal obstetric pelvic ultrasound using a curvilinear transducer with grayscale and color Doppler technique. FINDINGS: Single intrauterine gestational sac with a yolk sac. pole is identified. Bledsoe-rump length measures 1.45 cm. HR: Absent/not identified. CRL (crown rump length): 1.45 cm (7 weeks and 6 days +/- 4 days). BRENDA (estimated date of delivery): 09/27/2025 +/- 4 days. MATERNAL ADNEXA: The right maternal ovary measures 3 x 2 x 2 cm. No solid or cystic lesion. There is flow on color Doppler interrogation The left maternal ovary measures 3 x 2 x 3. There is flow on color Doppler interrogation. No solid or cystic lesion. cm. . No free fluid in the cul-de-sac. The cervix and endocervical canal are not fully depicted on the exam. No gross subchorionic hematoma. US/US OB pelvic and transvaginal IMPRESSION: Concerning demise correspond to 7 weeks and 6 days by ultrasound. Result provided via [employer] to the emergency physician physician's assistant, Viji Colon on February 14, 2025 at 2:13 PM Electronically signed by: Flo Christy MD 02/14/2025 02:15 PM EDT
[2025-02-14 11:49] VITALS: BP 121/58; PULSE 88; RESP 16; TEMP 36.6; O2SAT 99
--- NOTE | 2025-02-14 11:50 | ED.GENADULT ---
HPI - General Adult General Chief complaint: Vaginal Bleeding Stated complaint: preg+ , vaginal bleeding Time Seen by Provider: 02/14/25 16:08 Source: patient, RN notes reviewed and old records reviewed Mode of arrival: ambulatory Limitations: no limitations History of Present Illness ED Provider: Mike QUINTANA narrative: 24-year-old female who denies any past medical history presents for evaluation of vaginal bleeding. Patient reports that she is about 12 weeks followed by [facility] she reports that she is due to see them this coming Wednesday, 2 days from now. She states that this is her 1st , she is . She reports that she is taking Keflex for an antibiotic that she started this morning. She states that prior to arrival she had an episode of pink bloody discharge while she was using the bathroom. she had some cramping that she described as 7/10 at the time. Currently she has no pain and no bleeding Related Data Previous Rx's ?Medication ?Instructions ?Recorded ketorolac 10 mg tablet 10 mg PO Q6H PRN headache 5 days 03/02/20 #10 tabs ketorolac 10 mg tablet 10 mg PO TID PRN pain 5 days 03/02/20 metoclopramide HCl 5 mg tablet 5 mg PO Q6H PRN nausea and 03/02/20 (Reglan) vomiting #10 tabs Allergies Allergy/AdvReac Type Severity Reaction Status Date / Time No Known Allergies Allergy Verified 02/14/25 11:52 Review of Systems Constitutional: Constitutional: Denies body ache(s), Denies chills and Denies headache(s) Eyes: Eyes: Denies blind spots ENT: Denies dizziness and Denies headache(s) Cardiovascular: Cardiovascular: Denies chest pain and Denies dyspnea on exertion Respiratory: Respiratory: Denies cough and Denies dyspnea on exertion Gastrointestinal: Gastrointestinal: Reports abdominal pain, Denies nausea and Denies vomiting Genitourinary: Genitourinary: Denies hematuria and Reports vaginal discharge (bloody) Musculoskeletal: Musculoskeletal: Denies back pain Integumentary/Breasts: Skin/Breast: Denies rash Neurologic: Denies dizziness and Denies headache(s) ON LICENSE OF [facility] Past Medical History Medical History No known health problems Family History Family History (Updated 03/02/20 @ 17:17 by Hien Chaparro MD) Other Migraine Social History Social History Alcohol intake: never Patient Tobacco Use Status: Never used Tobacco Advance Directives: No Advance Directives Information Provided: Yes Physical Exam ED Vital Signs: Vital Signs - 24 hr 02/14/25 11:49 02/14/25 16:48 Temperature 97.8 F 97.8 F Pulse Rate 88 86 Respiratory Rate 16 16 Blood Pressure 121/58 L 111/61 Pulse Oximetry 99 100 Oxygen Delivery Method Room Air Room Air BMI result Body Mass Index 20.0 Const General: healthy appearing, comfortable, no acute distress, alert and awake Nutritional Appearance: well nourished Orientation/consciousness: patient oriented x3 HENMT Head: Yes normocephalic and Yes atraumatic Eyes Eyelids: Yes eyelids normal Conjunctivae: conjunctivae normal Sclerae: sclerae normal Corneas: corneas normal Pupils: Equal, round and reactive pupils present EOM: EOMs intact bilaterally Neck Neck: Yes full ROM Resp Effort & Inspection: normal respiratory effort, able to speak in complete sentences and not labored Cardio Rate: regular rate Rhythm: regular rhythm GI Inspection: No distended Palpation (GI): Soft to palpation, not firm, no guarding and not rigid External Female Exam: normal external appearance, normal appearance of the urethra, No erythema, No externally tender and No external swelling Speculum Exam - Vagina: normal appearance of the vagina, vaginal discharge abnormal and abnormal vaginal discharge ( brownish vaginal discharge) Speculum Exam - Cervix: normal appearance of the cervix and Cervical os closed Skin General skin exam: elasticity normal Neuro General: patient oriented x3 Cranial nerves: Yes Equal, round and reactive pupils present and Yes Bilaterally intact EOM present Cognition (Neuro): normal cognition Extrem Other: Moving all extremities well without any obvious deformities Course Course Course Narrative: This is a Rapid Medical Examination (RME) performed by Suleman Colon PA-C in triage. Full HPI, ROS, assessment and treatment plan per primary provider in the Main ED. Hx: 24 yo F currently 12 wks here w/ 20 mins of light vaginal bleeding w/ associated lower abd pain. follows w/ OBGYN in [place] - has an appointment on Wednesday. admits to sexual intercourse this morning. currently on cefpodoxime for UTI, took first dose this morning. Plan: labs, US Medical Decision Making Medical Decision Making MDM Narrative: 24-year-old female presents for evaluation of vaginal bleeding in . She is , by date approximately 12 weeks . She is asymptomatic at the time my evaluation. Her vital signs are stable, labs are reassuring though her hCG is low at 7500. an ultrasound was obtained which is very concerning for demise given the measurements are measuring at approximately 7 weeks and 6 days with a low hCG in the vaginal bleeding and cramping. I discussed with OBGYN, Dr. Montero who recommends the patient have very close follow up, discuss with her OBGYN tomorrow. Return for new or worsening symptoms. I did add on ABO/Rh typing to determine if the patient requires RhoGAM. The patient believes she is type A positive. Differential Diagnosis Differential Diagnoses: The differential diagnosis associated with the presentation includes missed Spontaneous Threatened Bleeding in Lab Data [facility] Lab Attestation statement: I reviewed the patient's lab results. no leukocytosis or anemia. Normal platelet count. No electrolyte abnormalities warranting dimension. serum hCG of 7542. notably lower than the expected range for 12 weeks 02/14/25 12:03 02/14/25 12:03 Labs: Lab Results 02/14/25 Range/Units 12:03 WBC 7.7 (4.8-10.8) X10*3/uL RBC 4.64 (4.20-5.50) X10*6/uL Hgb 12.8 (12.0-16.0) g/dl Hct 39.6 (37.0-47.0) % MCV 85.3 (80.0-98.0) fL MCH 27.6 (27.0-33.0) pg MCHC 32.3 (31.0-35.0) g/dl RDW 13.3 (11.0-16.0) % Plt Count 264 (160-400) X10*3/uL MPV 9.0 L (9.4-12.3) fL Immature Gran % (Auto) 0.1 (0.0-0.4) % Neut % (Auto) 72.9 (45-73) % Lymph % (Auto) 20.1 (20-40) % [place] % (Auto) 4.9 (2-11) % Eos % (Auto) 1.6 (0-4) % Baso % (Auto) 0.4 (0-2) % Lymph # (Auto) 1.6 (1.2-4.9) X10*3/uL [place] # (Auto) 0.4 (0.1-1.2) X10*3/uL Eos # (Auto) 0.1 (0.0-0.4) X10*3/uL Baso # (Auto) 0.0 (0.0-0.2) X10*3/uL Abs Immat Gran (auto) 0.01 (0.00-0.03) X10*3/uL Absolute Neuts (auto) 5.6 (2.0-8.3) x10*3/uL Absolute Nucleated RBC 0.000 (0.0-0.012) X10*3/uL Nucleated RBC % (auto) 0.0 (0.0-0.2) /100WBC Sodium 141 (135-145) mmol/L Potassium 4.5 (3.3-5.1) mmol/L Chloride 107 (96-108) mmol/L Carbon Dioxide 29 (22-29) mmol/L Anion Gap 10 L (12-20) BUN 15 (9-16) mg/dL Creatinine 0.72 (0.5-1.4) mg/dL Estim Creat Clear Calc 69.0 Estimated GFR > 60 Random Glucose 79 (60-115) mg/dL Calcium 9.2 (8.4-10.2) mg/dL Magnesium 2.0 (1.6-2.6) mg/dL Total Bilirubin 0.5 (0.0-1.0) mg/dL AST 29 (5-31) U/L ALT 24 (0-31) U/L Alkaline Phosphatase 56 (39-117) U/L Total Protein 7.5 (6.5-8.0) g/dL Albumin 4.7 (3.5-5.0) g/dL Beta HCG, Quant 7542 mIU/mL Discharge Plan Discharge Clinical Impression: Missed Patient Disposition: Home, Self-Care Instructions: Miscarriage (ED) Additional Instructions: unfortunately, it appears as if you are having a miscarriage. follow up with your OBGYN, you should see them in the next 2 days. Return for new or worsening symptoms, especially severe abdominal pain or heavy vaginal bleeding Prescriptions: No Action ketorolac 10 mg tablet 10 mg PO TID PRN (Reason: pain) 5 Days 0RF metoclopramide HCl [Reglan] 5 mg tablet 5 mg PO Q6H PRN (Reason: nausea and vomiting) Qty: 10 0RF ketorolac 10 mg tablet 10 mg PO Q6H PRN (Reason: headache) 5 Days Qty: 10 0RF Print Language: Yoruba
[2025-02-14 12:07] LABS: MANUAL DIFF FLAG NO
[2025-02-14 12:09] LABS: Hematocrit 39.6 % (37.0-47.0); Hemoglobin 12.8 g/dl (12.0-16.0); Imm Gran Abs Auto 0.01 X10*3/uL (0.00-0.03); Imm Gran Pct Auto 0.1 % (0.0-0.4); Lymphocytes Absolute Auto 1.6 X10*3/uL (1.2-4.9); Mean Corpuscular HGB Conc 32.3 g/dl (31.0-35.0); Mean Corpuscular Hemoglobin 27.6 pg (27.0-33.0); Mean Corpuscular Volume 85.3 fL (80.0-98.0); NRBC Abs Auto 0.000 X10*3/uL (0.0-0.012); NRBC Pct Auto 0.0 /100WBC (0.0-0.2); Platelet Count 264 X10*3/uL (160-400); Red Blood Count 4.64 X10*6/uL (4.20-5.50); White Blood Count 7.7 X10*3/uL (4.8-10.8)
[2025-02-14 12:27] LABS: Alanine Aminotransferase 24 U/L (0-31); Albumin Level 4.7 g/dL (3.5-5.0); Alkaline Phosphatase 56 U/L (39-117); Anion Gap 10 (12-20); Aspartate Amino Transferase 29 U/L (5-31); Blood Urea Nitrogen 15 mg/dL (9-16); Calcium 9.2 mg/dL (8.4-10.2); Carbon Dioxide 29 mmol/L (22-29); Chloride 107 mmol/L (96-108); Creatinine Clr Calc Pharmacy 69.0; Estimated Glomerular Filt Rate > 60; Magnesium 2.0 mg/dL (1.6-2.6); Potassium 4.5 mmol/L (3.3-5.1); Sodium 141 mmol/L (135-145); Total Protein 7.5 g/dL (6.5-8.0)
--- NOTE | 2025-02-14 16:31 | PM.GYNCN ---
ASPH[facility]AYER - CN: HPI Data of Consult Consult date: 02/14/25 Primary Care Provider: Devante Valencia MD Consult Narrative Narrative: I was consulted on Bronwyn Morton who is a 24 year old currently 12 wks of gestation by LMP presenting to the emergency room with a history of 20 mins of light vaginal bleeding associated lower pelvic cramping which resolved afterwards. The patient is being followed up by [facility] in [place] - has an appointment on Wednesday. admits to sexual intercourse this morning. currently on cefpodoxime for UTI, took first dose this morning. HCG 7542 Rh pending instructions to be given to the patient to follow-up with the OBGYN in a.m. to come back to the emergency room in case of vaginal bleeding and or bleeding of vaginal bleeding and or pain vaginal bleeding with the OBGYN Pelvic ultrasound done in the emergency room showed the following Single intrauterine gestational sac with a yolk sac. pole is identified. [place]-rump length measures 1.45 cm. HR: Absent/not identified. CRL (crown rump length): 1.45 cm (7 weeks and 6 days +/- 4 days). BRENDA (estimated date of delivery): 09/27/2025 +/- 4 days. MATERNAL ADNEXA: The right maternal ovary measures 3 x 2 x 2 cm. No solid or cystic lesion. There is flow on color Doppler interrogation The left maternal ovary measures 3 x 2 x 3. There is flow on color Doppler interrogation. No solid or cystic lesion. cm. . No free fluid in the cul-de-sac. The cervix and endocervical canal are not fully depicted on the exam. No gross subchorionic hematoma. US/US OB pelvic and transvaginal IMPRESSION: Concerning demise correspond to 7 weeks and 6 days by ultrasound. Result provided via [email or web address] connect to the emergency physician project construction assistant manager, Viji Colon on February 14, 2025 at 2:13 PM cc:: CC: OB [facility] Past Medical History Medical History No known health problems Family History Family History (Updated 03/02/20 @ 17:17 by Hien Chaparro MD) Other Migraine Social History Social History Alcohol intake: never Patient Tobacco Use Status: Never used Tobacco Meds Allergies Allergy/AdvReac Type Severity Reaction Status Date / Time No Known Allergies Allergy Verified 02/14/25 11:52 [place] [facility] Physical Exam Vitals Vital signs: Temp Pulse Resp BP Pulse Ox O2 Del Method 97.8 F 88 16 121/58 L 99 Room Air 02/14/25 11:49 02/14/25 11:49 02/14/25 11:49 02/14/25 11:49 02/14/25 11:49 02/14/25 11:49 BMI result Body Mass Index 20.0 Additional Comments: Reported by Jarrod Mckeon pelvic exam unremarkable no evidence of bleeding closed cervical os [facility] - Results Labs 02/14/25 12:03 02/14/25 12:03 Labs: Short CBC 02/14/25 Range/Units 12:03 WBC 7.7 (4.8-10.8) X10*3/uL Hgb 12.8 (12.0-16.0) g/dl Hct 39.6 (37.0-47.0) % Plt Count 264 (160-400) X10*3/uL BMP 02/14/25 12:03 Sodium 141 Potassium 4.5 Chloride 107 Carbon Dioxide 29 BUN 15 Creatinine 0.72 Calcium 9.2 Liver Function 02/14/25 Range/Units 12:03 Total Bilirubin 0.5 (0.0-1.0) mg/dL AST 29 (5-31) U/L ALT 24 (0-31) U/L Alkaline Phosphatase 56 (39-117) U/L Albumin 4.7 (3.5-5.0) g/dL Imaging US - abdomen: Radiologist's impression: ITS Impressions Pelvic/Transvag US 02/14/25 13:21 IMPRESSION: Concerning demise correspond to 7 weeks and 6 days by ultrasound. Result provided via [email or web address] connect to the emergency physician project construction assistant manager, Viji Colon on February 14, 2025 at 2:13 PM Electronically signed by: Flo Christy MD 02/14/2025 02:15 PM EDT RP Assessment and Plan (1) Missed : Status: Acute Recommended the following to SABINO Rubin in the emergency room: Pelvic exam, GC/CT to be collected. Instructions to be given to the patient to contact her OBGYN in a.m., to come back to emergency room in case of recurrence of vaginal bleeding and or bleeding. I spent a total of 20 minutes reviewing the chart, communicating with the emergency room provider and documenting in the medical record.
[2025-02-14 16:48] VITALS: BP 111/61; PULSE 86; RESP 16; TEMP 36.6; O2SAT 100
[2025-02-14 18:00] VITALS: BP 101/69; PULSE 77; RESP 16; TEMP 36.8; O2SAT 100
[2025-02-14 18:29] LABS: Appearance Urine Clear; Glucose Urine UA Negative (Negative); PH 6.0 (5.0-9.0); Specific Gravity - Urine 1.010 (1.005-1.025); UMIC TRIGGER UACC YES
[2025-02-14 18:32] VITALS: BP 101/69; PULSE 77; RESP 16; TEMP 36.8; O2SAT 100
--- OUTSIDE RECORDS SUMMARY | 2025-02-14 22:12 | XMS_ITS | Clinical Summary ---
Author Organization [facility] [address] [place] [address] [place] [address] Phone Care Team Providers Care Administrative Aide Name Role Phone Devante Valencia MD Primary Care Provider [phone] Medications SUMAtriptan (IMITREX) 50 mg tablet 50 mg as a single dose. If symptoms persist or return, may repeat dose (usually same as first dose) after 2 hours. Maximum dose: 100 mg/dose 11/24/2023 Active Active Problems Problem Noted Date Diagnosed Date Chronic midline low back pain without sciatica 0 11/24/2023 Decreased left patellar reflex 11/24/2023 Dizziness 11/24/2023 Intractable migraine without status migrainosus 11/24/2023 Pilar cyst of scalp 11/24/2023 Acute cystitis without hematuria 05/07/2023 E-coli UTI 05/07/2023 Disease due to severe acute respiratory syndrome coronavirus 2 (SARS-CoV-2) 05/22/2021 Overview (03/07/2024): Problem added by Discern Expert Encounters Date Type Department Care Team Description 12/18/2024 Telephone Adult Medicine [facility] [address] [place] [address] Devante Valencia MD from Last 3 Months Immunizations Immunization Administration Dates Next Due HPV 9-valent (Gardisil) 9yo to less than 46yo 07/05/2024,05/28/2015 Hepatitis A Pediatric (Havri x; Vaqta) 12mo to less than 19yo 05/28/2015 Hepatitis B Pediatric (Enger ix B; Recombivax HB) to less than 20 yo 07/03/2020 Influenza Quadravalent, MDCK , 0.5ml, preservative free (Flucelvax) 6mo and older 07/05/2023 Influenza trivalent, 0.5mL, preservative free (Fluarix; FluLaval; Fluzone) ages 6mo and older (Afluria) 3 years and older 05/13/2022,01/15/2020,01/20/2019,01/19,05/28/2015 Meningococcal B, Recombinant (Trumenba) 16yo to less than 24yo 01/17/2020,01/20/2019 Meningococcal MCV4P 01/19/2018 Tdap Tetanus diptheria acell ular pertussis (Boostrix; Adacel) 7yo and older 07/05/2023 Social History Tobacco Use Types Packs/Day Years Used Date Smoking Tobacco: Former Smokeless Tobacco: Never Alcohol Use Standard Drinks/Week Comments Yes 0 (1 standard drink = 0.6 oz pur e alcohol) Housing Instability Answer Date Recorde d Are you worried that in the next 2 months you may not have stable housing? No 07/05/2024 Food Access & Nutrition Answer Date Rec orded Do you have access to a vari ety of food including fruits and vegetables? Yes 07/05/2024 Access to Healthcare Answer Date Record ed Within the last 3 months, ho w many times did you visit the emergency department for your medical care? 0 07/05/2024 Health Literacy Answer Date Recorded How often do you need to hav e someone help you when you read instructions, pamphlets, or other written material from your doctor or pharmacy? Never 07/05/2024 Caregiver: How often do you need to have someone help you when you read instructions, pamphlets, or other written material from your doctor or pharmacy? Not on file 07/05/2024 Financial Risk Answer Date Recorded How hard is it for you to pa y for the very basics like food, housing, medical care, and air conditioning / heating? Not very hard 07/05/2024 Transportation Answer Date Recorded Has the lack of transportati on kept you from meetings, work, or from getting things needed for daily living? No Has the lack of transportati on kept you from medical appointments or from getting medications? No 07/05/2024 Social Isolation Answer Date Recorded How often do you feel lonely or isolated from th ose around you? Never 07/05/2024 Food Risk Answer Date Recorded Within the past 12 months we worried whether our food would run out before we got money to buy more. Never true 07/05/2024 Within the past 12 months th e food we bought just didn't last and we didn't have money to get more. Never true 07/05/2024 Dependent Care Answer Date Recorded Do you need help finding or paying for care for your loved ones. For example, child protective investigator or elderly care for an older adult? No 07/05/2024 Education Answer Date Recorded Do you think completing more education or training, like finishing a GED, going to college, or learning a trade, would be helpful for you? No 07/05/2024 Employment and Income Answer Date Recor ded During the last four weeks, have you been actively looking for work? No 07/05/2024 Living Situation Answer Date Recorded What is your living situation? Unrecognized valu e 07/05/2024 Comments Unknown Sex and Gender Information Value Date Recorded Sex Assigned at Female 07/05/2024 10:30 AM EDT Legal Sex Female 11:06 AM EDT Gender Identity Female 07/05/2024 10:30 AM EDT Sexual Orientation Not on file Obstetrics History Last Filed Vital Signs Vital Sign Reading Time Taken Comments Blood Pressure 98/64 07/05/2024 10:50 AM EDT Pulse 90 07/05/2024 10:50 AM EDT Temperature 36.7 C (98 F) 07/05/2024 10:50 AM EDT Respiratory Rate 12 07/05/2024 10:50 AM EDT Oxygen Saturation - - Inhaled Oxygen Concentration - - Weight 35.8 kg (79 lb) 07/05/2024 10:50 AM EDT Height 144.8 cm (4' 9 ) 07/05/2024 10:50 AM EDT Body Mass Index 17.1 07/05/2024 10:50 AM EDT Plan of Treatment Upcoming Encounters Date Type Department Care Team (Late st Contact Info) Description 07/11/2025 8:00 AM EDT Office Visit Adult Medicine [facility] [address] [place] [address] Devante Valencia MD [address] [place] [address] Health Maintenance Due Date Last Done Comments COVID-19 Vaccine ( season) 2024 Influenza Vaccine (#1) 2024 , 05/13/2022, 01/15/2020, Additional history exists Cervical Cancer Screening: Pap Smear 04/26/2025 Postponed from 2021 (Patient Refused) Hepatitis A Vaccines (2 of 2 - 2-dose series) 04/26/2025 05/28/2015 Postponed from 11/26/2015 (Patient Refused) Hepatitis B Vaccines (2 of 3 - 19+ 3-dose series) 04/26/2025 07/03/2020 Postponed from 07/31/2020 (Patient Refused) Gonorrhea/Chlamydia Screening 07/05/2025 07/05/2024 Social Influencers of Health Screening 07/05/2025 07/05/2024 Cholesterol Screening (Lipid Panel) 07/05/2029 07/05/2024, 05/07/2023 DTaP,Tdap,and Td Vaccines (2 - Td or Tdap) 07/04/2033 07/05/2023 RSV Immunization Adult Patients (1 - 1-dose 75+ series) 08/06/2075 Meningococcal ACWY Vaccine Completed 01/19/2018 Meningococcal B Vaccine Completed 01/17/2020, 01/20 Depression Screening Completed 07/05/2024 HIV Screening Completed 07/05/2024, 11/24/2023 HPV Vaccines Completed 07/05/2024, 05/28/2015 Hepatitis C Screening Completed 07/05/2024 HIB Vaccines Aged Out No longer eligi ble based on patient's age to complete this topic IPV Vaccines Aged Out No longer eligi ble based on patient's age to complete this topic MMR Vaccines Aged Out No longer eligi ble based on patient's age to complete this topic Pneumococcal Vaccine: Pediatrics (0 to 5 Years) and At-Risk Patients (6 to 49 Years) Aged Out No longer eligible based on patient's age to complete this topic RSV Immunization Patients Under 20 months Aged Out No longer eligible based on patient's age to complete this topic Varicella Vaccines Aged Out No longer eligible based on patient's age to complete this topic Procedures Procedure Name Priority Date/Time Associated Diagnosis Comments HEPATITIS PANEL, ACUTE WITH REFLEX TO CONFIRMATION Routine 07/05/2024 12:04 PM EDT Annual physical exam HIV 1, 2 ANTIBODY, P24 ANTIGEN WITH REFLEX TO DIFFERENTIATION Routine 07/05/2024 12:04 PM EDT Annual physical exam LIPID PANEL WITH REFLEX TO DIRECT LDL Routine 07/05/2024 12:04 PM EDT Annual physical exam CHLAMYDIA TRACHOMATIS AND NEISSERIA GONORRHOEAE PCR Routine 07/05/2024 12:04 PM EDT Annual physical exam from Last 3 Months or Most Recently Relevant to Health Maintenance Results * HIV 1,2 antibody, p24 antigen with reflex to differentiation (07/05/2024 12:04 PM EDT) HIV Combo AB/AG Negative Negative LAB CHEMISTRY METHOD 07/05/2024 8:03 PM EDT [facility] Blood Venous blood specimen / Unknown Venipuncture / Unknown 07/05/2024 12:04 PM EDT 07/05/2024 12:04 PM EDT Narrative [facility] - 07/05/2024 8:03 PM EDT This assay is a 4th generation assay allowing for earlier detection of HIV infection by detecting the presence of the HIV-1 p24 antigen as well as the traditional antibodies to HIV type 1 (including group O) and type 2. Use of a 4th generation assay is the current CDC recommendation for HIV screening. us Devante Valencia MD LAB BLOOD ORDERABLES Final Result [facility] [address] [place] [address], [place] [phone] * Lipid panel with reflex to direct LDL (07/05/2024 12:04 PM EDT) Cholesterol 161 0 - 200 mg/dL LAB CHEMISTRY METHOD 07/05/2024 2:16 PM EDT [facility] Triglycerides 53 0 - 150 mg/dL LAB CHEMISTRY METHOD 07/05/2024 2:16 PM EDT [facility] HDL 67 >=40 mg/dL LAB CHEMISTRY METHOD 07/05/2024 2:16 PM EDT [facility] LDL Calculated 83 0 - 100 mg/dL LAB CHEMISTRY METHOD 07/05/2024 2:16 PM EDT [facility] VLDL Cholesterol Gopal 10.6 mg/dL LAB CHEMISTRY METHOD 07/05/2024 2:16 PM EDT [facility] Non HDL Chol. (LDL+VLDL) 94 <145 mg/dL LAB CHEMISTRY METHOD 07/05/2024 2:16 PM EDT [facility] Chol/HDL Ratio 2.4 0.0 - 4.4 LAB CHEMISTRY METHOD 07/05/2024 2:16 PM EDT [facility] Blood Venous blood specimen / Unknown Venipuncture / Unknown 07/05/2024 12:04 PM EDT 07/05/2024 12:04 PM EDT us Devante Valencia MD LAB BLOOD ORDERABLES Final Result [facility] [address] [place] [address], [place] [phone] * Hepatitis panel, acute with reflex to confirmation (07/05/2024 12:04 PM EDT) Pathologist [facility] Hepatitis B Surface Ag Negative Negative LAB CHEMISTRY METHOD 07/05/2024 8:11 PM EDT [facility] Hepatitis A Antibody IgM Negative Negative LAB CHEMISTRY METHOD 07/05/2024 8:11 PM EDT [facility] Hep B Core IgM Negative Negative LAB CHEMISTRY METHOD 07/05/2024 8:11 PM EDT [facility] Hepatitis C Antibody Negative Negative LAB CHEMISTRY METHOD 07/05/2024 8:11 PM EDT [facility] Blood Venous blood specimen / Unknown Venipuncture / Unknown 07/05/2024 12:04 PM EDT 07/05/2024 12:04 PM EDT Devante Valencia MD LAB BLOOD ORDERABLES Final Result [facility] [address] [place] [address], [place] [phone] * Chlamydia trachomatis and Neisseria gonorrhoeae molecular study (07/05/2024 12:04 PM EDT) Neisseria gonorrhoeae PCR Negative Negative LAB MOLECULAR DIAGNOSTICS METHOD 07/05/2024 4:01 PM EDT [facility] Chlamydia trachomatis PCR Negative Negative LAB MOLECULAR DIAGNOSTICS METHOD 07/05/2024 4:01 PM EDT [facility] Swab Urine specimen obtained by clean catch procedure / Unknown Non-blood Collection / Unknown 07/05/2024 12:04 PM EDT 07/05/2024 12:04 PM EDT Devante Valencia MD LAB MICROBIOLOGY - GENERAL ORDERABLES Final Result [facility] [address] [place] [address], [place] [phone] from Last 3 Months or Most Recently Relevant to Health Maintenance Additional Health Concerns Infection Onset Date Last Indicated Herpes simplex 07/05/2024 07/05/2024 Insurance MEDICAID - [place] Care Teams Administrative Aide Relationship Specialty Start Date End Date Devante Valencia MD [address] [place] [address] PCP - General 05/03/23
[2025-02-15 05:58] LABS: Bacterial Vaginosis PCR NEGATIVE (Negative); Candida Group PCR DETECTED (Not Detect); Candida glab krusei PCR NOT DETECTED (Not Detect); Trichomonas vaginalis PCR NOT DETECTED (Not Detect)
[2025-02-15 06:28] LABS: CT PCR NOT DETECTED (Not Detect.); NG PCR NOT DETECTED (Not Detect.)
== END 2025-02-14 18:32 | disposition home or self-care (01) ==
PROVIDERS: Physician Assistant; Physician Assistant Medical; Emergency Provider Emergency Medicine; PCP Internal Medicine
DX: O02.1 Missed abortion (principal); B37.31 Acute candidiasis of vulva and vagina
CPT/HCPCS: 36415; 76801; 76817; 80053; 81001; 81515; 83735; 84702; 85025; 86900; 86901; 87491; 87591; 99283; 99284

== ENCOUNTER → 2025-02-14 11:51 | Outpatient (BNV) | payer OTHER, SELFPAY | PROVIDERS: PCP Internal Medicine; Visit Provider Radiology Diagnostic Radiology | DX: O20.9 Hemorrhage in early pregnancy, unspecified (principal); Z3A.12 12 weeks gestation of pregnancy | CPT/HCPCS: 76801; 76817 ==

== ENCOUNTER → 2025-02-14 16:50 | Outpatient (BNV) | payer OTHER, SELFPAY | PROVIDERS: Emergency Provider Emergency Medicine; PCP Internal Medicine; Visit Provider Obstetrics & Gynecology | DX: O02.1 Missed abortion (principal) | CPT/HCPCS: 99283 ==